=== PATIENT | male | born 1955 | race Caucasian/White ===

== ENCOUNTER → 2019-10-04 | Outpatient (CLI) | payer OTHER | LOC: MHCPAIN 09:20 | DX: R51 Headache (principal); M25.511 Pain in right shoulder; M25.512 Pain in left shoulder; M47.812 Spondylosis without myelopathy or radiculopathy, cervical region | CPT/HCPCS: G0463 ==

== ENCOUNTER → 2019-10-19 | Outpatient (CLI) | payer OTHER | LOC: MHCPAIN 09:54 | DX: M54.2 Cervicalgia (principal) | CPT/HCPCS: J1100; Q9967 ==

== ENCOUNTER → 2019-10-31 | Outpatient (CLI) | payer OTHER | LOC: MHCPAIN 11:53 | DX: R51 Headache (principal); M47.22 Other spondylosis with radiculopathy, cervical region | CPT/HCPCS: G0463 ==

== ENCOUNTER 2020-06-04 15:04 | Inpatient (IN) | payer OTHER ==
[~2020-06-04] VITALS: Ht 193 cm; Wt 102.2 kg
[2020-06-04 16:48] VITALS: BP 133/71; PULSE 64; TEMP 64
[2020-06-04] MEDS ORDERED: ROBAXIN 50500 MG/TAB PO (18:23)
[2020-06-04] MEDS ORDERED: LOTENSIN20 MG PO (18:24)
[2020-06-04] MEDS ORDERED: HYDRODIURIL50 MG PO (18:25)
[2020-06-04] MEDS ORDERED: VICOPROFEN 7.51 TAB PO (18:26)
[2020-06-04] MEDS ORDERED: ADVIL MIGRAINE200 MG PO (18:27)
[2020-06-04] MEDS ORDERED: PEPCID AC 10MG10 MG PO (18:28)
--- NOTE | 2020-06-04 19:00 | NUR ---
RECEIVED CHANGE OF SHIFT REPORT FROM DAY SHIFT NURSE. PATIENT EATING SUPPER, IVF INFUSING WITH NO PROBLEMS AT THIS TIME.
--- NOTE | 2020-06-04 19:04 | NUR ---
Patient arrived to floor via EMS. Patient is alert and oriented, answers questions appropriately. at bedside. Patient was nauseated after arrival but did not have emesis. Administered PRN nausea and pain medicaiton per order. Patient ate dinner and tolerated it well, no c/o nausea. Patient denies further needs at this time, call light within reach.
[2020-06-04 19:14] VITALS: BP 116/48; PULSE 60; TEMP 97.2
[2020-06-04] MEDS ORDERED: MEVACOR10 MG PO (20:13)
--- NOTE | 2020-06-04 20:50 | NUR ---
DECREASED ROM/STRENGTH TO R HIP D/T HIP FX, SCHEDULED FOR SURGERY LATE TOMORROW AT THIS TIME. IVF INFUSING WITH NO PROBLEMS. DENIES CHEST PAIN/SHORTNESS OF BREATH. DENIES NUMBNESS/TINGLING AT THIS TIME, WIGGLES RIGHT TOES/FLEXES&EXTENSION TO RIGHT ANKLE ON COMMAND. SEE eMAR FOR PAIN MEDS GIVEN.
[2020-06-04 23:47] VITALS: BP 139/58; PULSE 75; TEMP 97.8
[2020-06-05] VITALS (11 sets, daily range): BP systolic 102–133; BP diastolic 50–88; PULSE 65–86; TEMP 97.3–98.1
[2020-06-05 00:20] LABS: MUCOUS Present /lpf; PH 6 (5-8); SQUAMOUS EPITHELIAL 0-2 /hpf; URINE APPEARANCE Clear; URINE BACTERIA None Seen /hpf; URINE BILIRUBIN Negative (NEGATIVE); URINE BLOOD Negative (NEGATIVE); URINE COLOR Yellow; URINE GLUCOSE Negative (NEGATIVE); URINE KETONE Trace (NEGATIVE); URINE LEUKOCYTE ESTERASE Negative (NEGATIVE); URINE NITRATE Negative (NEGATIVE); URINE PROTEIN(semi-quant) Negative (NEGATIVE); URINE RBC 0-2 /hpf; URINE UROBILINOGEN Negative (NEGATIVE)
[2020-06-05 00:23] LABS: COLLECTION METHOD CLEAN CATCH
--- NOTE | 2020-06-05 07:29 | NUR ---
CHANGE OF SHIFT REPORT GIVEN TO DAY SHIFT NURSEALLYSON. REQUESTED AND GIVEN PAIN MEDS, SEE eMAR FOR MEDS GIVEN.
[2020-06-05 08:28] LABS: BASO % 0.3 % (0.0-2.0); EOS # 0.1 (0.0-0.7); EOS % 0.5 % (0-4.0); GRAN # 9.1 (1.4-6.5); GRAN % 78.4 % (42.2-75.2); HEMATOCRIT 37.8 % (42.0-52.0); HEMOGLOBIN 12.6 g/dl (13.5-18.0); LYMPH # 1.3 (1.2-3.4); LYMPH % 10.9 % (20.0-51.0); MEAN CELL VOLUME 95 fl (80.0-100.0); MEAN CORPUSCULAR HEMOGLOBIN 32 pg (27.0-31.0); MEAN CORPUSCULAR HGB CONC 33 g/dl (33.0-37.0); MEAN PLATELET VOLUME 11.1 fl (7.4-10.4); MONO # 1.1 (0.1-0.6); MONO % 9.4 % (1.7-9.3); PLATELET COUNT 279 K/mm3 (130-400); RED BLOOD COUNT 3.99 M/mm3 (4.20-5.60); REDCELL DISTRIBUTION WIDTH-CV 12.8 % (11.5-14.5)
[2020-06-05 08:29] LABS: CALCIUM 8.8 mg/dL (8.4-10.2); CREATININE, serum 0.9 (0.66-1.25); POTASSIUM 3.6 mmol/L (3.4-5.0)
--- NOTE | 2020-06-05 09:36 | NUR ---
CRISTIAN met with the patient to discuss discharge plan. The patient lives in [place] with his , Rosana (ph#[phone]). He reports independence with ADLs and does not have any DME. The patient's PCP is Dr. Leon Onofre and he receives his medications at [facility]. He reports no difficulties obtaining his meds. The patient does not have a DPOA-HC completed, but he was interested in obtaining a form for DPOA-HC. CRISTIAN provided. The patient has a right hip fracture. CRISTIAN discussed the possibility of needing post-acute rehab upon discharge. The patient states that he is hopeful to be able to return home upon discharge. He would like to see how he does with PT/OT after his surgery today. CRISTIAN then contacted the patient's , Rosana, and explained CRISTIAN's role. Rosana is in agreement to see how the patient does with PT/OT after surgery to determine care needed. SW to continue to follow.
--- NOTE | 2020-06-05 09:37 | NUR ---
Initial visit; Patient appeared to be in pain when he thanked [employer] for looking in on him. [employer] offered God's blessings.
--- NOTE | 2020-06-05 11:34 | NUR ---
Patient reporting pain to right lower extremity being 5/10 throbbing pain and given prn morphine. He had one episode of vomiting this morning following his dose of morphine. Given prn zofran and has no further episodes at this time. Will continue to monitor.
--- NOTE | 2020-06-05 13:20 | NUR ---
Patient resting in bed with by his side.
--- NOTE | 2020-06-05 13:38 | NUR ---
The patient completed a DPOA-HC and designated his , Rosana. CRISTIAN and the patient's RN, Rubi, witnessed the patient's signature. The patient was provided with the original and some copies. CRISTIAN placed a copy in the patient's chart.
--- NOTE | 2020-06-05 17:24 | NUR ---
Patient went to surgery at approximatly 4:10 or 4:15 pm. SCD's were taken with patient along with his consent for surgery and his chart. Patient's underwear had to be cut off since patient couldn't move due to fracture. Patient was cleaned and new gown placed on prior to surgery. was here earlier to visit patient, and is now at home. She will be contacted by post op nurse once patient is out of surgery. Awaiting patients return from surgery.
--- NOTE | 2020-06-05 20:05 | NUR ---
PATIENT ARRIVED FROM PACU TO ROOM 343. DENIES URGE TO VOID.
--- NOTE | 2020-06-05 20:45 | NUR ---
DECREASED ROM/STRENGTH TO RLE DUE R HIP SURGERY. ICE TO RIGHT HIP, PATIENT DENIES PAIN TO RLE/HIP AREA. WIGGLES TOES OF BOTH FEET AND FLEX/EXTENDS [place] ANKLES ON COMMAND. DENIES CHEST PAIN/SHORTNESS OF BREATH. DENIES NUMBNESS/TINGLING TO EXTREMITIES. IVF INFUSING TO RIGHT HAND WITH NO PROBLEMS. ON ROOM AIR. DENIES URGE TO VOID AT THIS TIME. TEDS AND SCD TO BLE AND PATIENT TOLERATES BOTH W/NO COMPLAINTS.
[2020-06-06] VITALS (9 sets, daily range): BP systolic 107–136; BP diastolic 50–72; PULSE 70–87; TEMP 97.4–98.3
--- NOTE | 2020-06-06 00:26 | NUR ---
REPORTS TENDERNESS TO POSTERIOR RIGHT UPPER ARM WITH TOUCH AND SOME MOVEMENT. DENIES NUMBNESS/TINGLING TO EXTREMITIES, DENIES CHEST PAIN/SHORTNESS OF BREATH. DENIES OFFERS OF PAIN MEDS AT THIS TIME FOR BOTH AREAS OF DISCOMFORT AT THIS TIME.
--- NOTE | 2020-06-06 02:30 | NUR ---
CALLED [facility] [employer] WITH DR MARSHALL, INFORMED OF BLADDER SCAN AMOUNT, PATIENT W/NO URGE TO VOID. ORDER GIVEN FOR ONE TIME ST CATH.
--- NOTE | 2020-06-06 06:23 | NUR ---
REQUESTED HOT COFFEE INSTEAD OF TAKING HOT WATER FOR BOWEL REGIMEN.
--- NOTE | 2020-06-06 06:24 | NUR ---
IVF STOPPED, SALINE LOCKED IV SITE, PATIENT PASSING FLATUS, DENIES NAUSEA.
[2020-06-06 06:57] LABS: HEMATOCRIT 36.2 % (42.0-52.0)
--- NOTE | 2020-06-06 07:24 | NUR ---
CHANGE OF SHIFT REPORT GIVEN TO DAY SHIFT NURSEADRIENNE. PATIENT UP IN CHAIR DURING REPORT.
--- NOTE | 2020-06-06 09:28 | NUR ---
PATIENT SITTING UP IN RECLINER AT BEDSIDE SHIFT REPORT. DENIED PAIN AT THE TIME, LATER REPORTED A 2/10 PAIN. PRN RAE 10 MG AND 650 OF TYLENOL GIVEN BEFORE PYSHICAL THERAPY. PATIENT TOLERATED BREAKFAST WELL AND WOULD LIKE TO ADVANCE TO A REGULAR DIET FOR LUNCH.
--- NOTE | 2020-06-06 10:22 | NUR ---
PT is recommending home health vs outpatient PT for the patient. SW met with the patient to review d/c plan and to discuss their recommendation. The patient states that he would like to return home with his . He states that he has two dogs at home and would prefer outpatient therapy at [facility]. PT is also recommending a FWW. The patient states that he does not have one and would be interested in getting a FWW from [facility]. SW contacted and faxed the FWW order to Tad at [facility]. Awaiting delivery of FWW. SW to contact and schedule an outpatient PT appointment at [facility].
--- NOTE | 2020-06-06 19:32 | NUR ---
PATIENT RECEIEVED 3 PRN DOESES OF RAE 10 MG AND TYLENOL 650 MG. PATIENT UTILIZED ICE THERAPY AND WAS ABLE TO WALK 100 FEET WITH THERAPY AND TO THE BATHROOM THIS EVENING. PT C/O MORE PAIN THE DAY HAS PROGRESSED WELL MORE SWELLING IN THE RLE.
--- NOTE | 2020-06-06 20:56 | NUR ---
PT TAKES HS MEDS INCLUDING DOSE OF ROBAXIN 500MG PO FOR MUSCLE SPASMS. IS ALERT AND ORIENTED X4. HAS SL TO RIGHT HAND WITHOUT REDNESS OR SWELLING. HAS DRSG X3 TO RIGHT LEG. CURRENTLY HAS ICE TO RIGHT KNEE D/T SWELLING AFTER AMBULATING.
--- NOTE | 2020-06-06 22:37 | NUR ---
MEDICATED WITH OXCODONE 10MG PO WITH TYLENOL 650MG PO AT THIS TIME FOR RIGHT LEG PAIN 03/25.
[2020-06-07 00:40] VITALS: BP 129/69; PULSE 86; TEMP 98.5
--- NOTE | 2020-06-07 02:37 | NUR ---
MEDICATED WITH OXYCODONE 10MG PO AND TYLENOL 650MG PO FOR RT LEG PAIN 03/25.
[2020-06-07 03:45] VITALS: BP 134/69; PULSE 88; TEMP 97.6
--- NOTE | 2020-06-07 06:36 | NUR ---
MEDICATED WITH OXYCODONE 10MG PO AND TYLENOL 650MG PO FOR PAIN TO RIGHT LEG.
[2020-06-07 06:41] LABS: HEMOGLOBIN 10.3 g/dl (13.5-18.0)
[2020-06-07 06:42] LABS: HEMATOCRIT 30.5 % (42.0-52.0)
[2020-06-07 07:00] LABS: CALCIUM 8.8 mg/dL (8.4-10.2); CREATININE, serum 1.34 (0.66-1.25); POTASSIUM 3.6 mmol/L (3.4-5.0)
[2020-06-07] MEDS ORDERED: ASPIRIN 32325 MG/TA1 PO (07:33)
[2020-06-07] MEDS ORDERED: VITAMIN C500 MG PO (07:33)
[2020-06-07] MEDS ORDERED: OSCAL 500 TAB500 MG PO (07:33)
[2020-06-07] MEDS ORDERED: DUO-KAPS1 CAP PO (07:34)
[2020-06-07 07:51] VITALS: BP 143/61; PULSE 88; TEMP 97.4
--- NOTE | 2020-06-07 08:45 | NUR ---
Sitting up in bed with eyes open watching TV. Rates pain to right hip 3/10, says the rodriguez medication has helped. Had a headache this morning as well. Has ice to right knee. Dressings to right hip/thigh/knee all CDI. Patient denies any further concerns or needs at this time.
--- NOTE | 2020-06-07 09:28 | NUR ---
CRISTIAN contacted Patricia at [facility] and scheduled the patient and outpatient PT appointment on Wednesday, 06/10, at 1015. Patricia states that they will schedule an OT appointment with the patient at his appointment on Wednesday. CRISTIAN notified the community health nursing director of the appointment. CRISTIAN to inform the patient. CRISTIAN will need to fax the patient's d/c orders to [facility] at [phone].
[2020-06-07 12:12] VITALS: BP 142/70; PULSE 91; TEMP 97.6
--- NOTE | 2020-06-07 12:24 | NUR ---
Sitting up in chair watching TV. Patient having minimal pain at this time but wants to get up and walk and take a shower so would like to take medication at this time to help decrease the pain. Will administer pain medication as prescribed. Patient denies additional needs.
[2020-06-07] MEDS ORDERED: NORCO 325 MG-7.1 TAB PO ×2 (13:27)
--- NOTE | 2020-06-07 14:35 | NUR ---
The patient is to tentatively d/c tomorrow, 06/07. CRISTIAN met with the patient to review d/c plan. The patient is ready to get back home, but is nervous. He would still like to pursue outpatient therapy. CRISTIAN contacted and reviewed the d/c plan with the patient's , Rosana. Rosana is in agreement to the plan. She states that she bought a tub transfer bench and toliet riser for the patient. She had no other questions for CRISTIAN at this time. [facility]. No additional needs at this time.
--- NOTE | 2020-06-07 15:41 | NUR ---
Patient sitting up in chair with eyes open watching TV. Rates pain 1/10 at this time. New ice pack applied to right knee. Patient says that he feels the heat from the shower really helped to decrease the pain as well. Denies additional needs. Hopes to go home tomorrow.
[2020-06-07 17:29] VITALS: BP 156/57; PULSE 105; TEMP 97.8
[2020-06-07 19:32] VITALS: BP 151/61; PULSE 103; TEMP 97.8
--- NOTE | 2020-06-07 20:40 | NUR ---
PT UP IN CHAIR AT BEDSIDE, TAKES HS MEDS WITHOUT PROBLEM INCLUDING OXYCODONE 10MG PO AND TYLENOL 650MG PO FOR RT LEG PAIN 10/23. WILL CALL WHEN READY FOR BED.
--- NOTE | 2020-06-07 21:23 | NUR ---
AMBULATES WITH WALKER, GAIT BELT AND ONE ASSIST TO BATHROOM, THEN TO BED. IVF INFUSING TO RIGHT HAND WITHOUT REDNESS OR SWELLING. IS ALERT AND ORIENTED X4. DRSG'S X3 TO RIGHT LEG, D/I. HAS BRUISE TO SACRUM FROM FALL.
[2020-06-07 22:43] LABS: BASO % 0.3 % (0.0-2.0); EOS # 0.1 (0.0-0.7); EOS % 1.2 % (0-4.0); GRAN # 7.1 (1.4-6.5); GRAN % 70.9 % (42.2-75.2); LYMPH # 1.6 (1.2-3.4); LYMPH % 15.5 % (20.0-51.0); MEAN CELL VOLUME 97 fl (80.0-100.0); MEAN CORPUSCULAR HEMOGLOBIN 31 pg (27.0-31.0); MEAN CORPUSCULAR HGB CONC 32 g/dl (33.0-37.0); MEAN PLATELET VOLUME 11.4 fl (7.4-10.4); MONO # 1.2 (0.1-0.6); MONO % 11.6 % (1.7-9.3); PLATELET COUNT 249 K/mm3 (130-400); REDCELL DISTRIBUTION WIDTH-CV 13.3 % (11.5-14.5)
--- NOTE | 2020-06-07 23:00 | NUR ---
PT COMPLAINING OF BURNING TO RIGHT LEG, ICE PACK PROVIDED.
[2020-06-08 01:38] VITALS: BP 142/68; PULSE 88; TEMP 97.7
[2020-06-08 04:12] VITALS: BP 158/77; PULSE 78; TEMP 98.6
--- NOTE | 2020-06-08 05:22 | NUR ---
Pt awake, reports pain to right leg 6/10. Has ice pack in place, medicated with Oxycodone 10mg po and Tylenol 650mg po at this time.
[2020-06-08 06:07] LABS: BASO % 0.5 % (0.0-2.0); EOS # 0.2 (0.0-0.7); GRAN # 6.5 (1.4-6.5); GRAN % 72.7 % (42.2-75.2); LYMPH # 1.1 (1.2-3.4); LYMPH % 12.6 % (20.0-51.0); MEAN CELL VOLUME 94 fl (80.0-100.0); MEAN CORPUSCULAR HGB CONC 33 g/dl (33.0-37.0); MEAN PLATELET VOLUME 10.7 fl (7.4-10.4); MONO % 11.6 % (1.7-9.3); PLATELET COUNT 237 K/mm3 (130-400); RED BLOOD COUNT 3.03 M/mm3 (4.20-5.60); REDCELL DISTRIBUTION WIDTH-CV 13.1 % (11.5-14.5)
[2020-06-08 06:08] LABS: HEMATOCRIT 28.5 % (42.0-52.0); HEMOGLOBIN 9.3 g/dl (13.5-18.0); MEAN CORPUSCULAR HEMOGLOBIN 31 pg (27.0-31.0)
[2020-06-08 06:18] LABS: CALCIUM 8.2 mg/dL (8.4-10.2); CREATININE, serum 0.93 (0.66-1.25); POTASSIUM 4.3 mmol/L (3.4-5.0)
[2020-06-08 08:19] VITALS: BP 148/62; PULSE 79; TEMP 98.4
--- NOTE | 2020-06-08 09:48 | NUR ---
CT CALLED AND NOTIFIED OF ORDERED CT SCAN AND THAT THE PHYSICIAN WOULD LIKE FOR IT TO BE DONE SOON POSSIBLE. PATIENT GIVEN NOW DOSE OF IV ATIVAN FOR AGITATION.
--- NOTE | 2020-06-08 09:56 | NUR ---
PATIENT TAKEN TO CT VIA BED. WILL WAIT FOR PATIENT RETURN TO ROOM 344.
--- NOTE | 2020-06-08 09:58 | NUR ---
PATIENT SHIFT ASSESSMENT COMPLETED AT THIS TIME. RIGHT HIP INCISION X3 DRESSED WITH GAUZE & TEGADERM AND ARE CD&I. POSTIVE PEDAL PULSES EQUAL BILATERALLY. CAP REFILL <3 SECONDS. CMS INTACT. NIMISHA HOSE TO BLE. PATIENT COMPLAINS OF PAIN IN THE RIGHT HIP. TYLENOL AND OXYCODONE GIVEN AT THIS TIME. PATIENT SITTING UP IN THE CHAIR. RLE ELEVATED ON A PILLOW. ICE PACK TO RIGHT HIP. CALL LIGHT WITHIN REACH. PATIENT DENIES ANY OTHER NEEDS AT THIS TIME.
[2020-06-08] MEDS ORDERED: NORCO 325 MG-51 TAB PO (11:09)
[2020-06-08] MEDS ORDERED: SENNA-S 50 MG-81 TAB PO (11:10)
--- NOTE | 2020-06-08 11:40 | NUR ---
RIGHT HAND INT DISCONTINUED PER PENDING DISCHARGE. TIP INTACT. PATIENT TOLERATED WELL. PATIENT AWAITING HIS FOR DISCHARGE. PATIENT STATES THAT HIS PAIN IS DOWN TO A 2/10 AFTER TAKING PAIN MEDICATION. CALL LIGHT IN REACH. NO OTHER NEEDS AT THIS TIME.
[2020-06-08 12:37] VITALS: BP 158/66; PULSE 84; TEMP 98.2
--- NOTE | 2020-06-08 14:05 | NUR ---
DISCHARGE INSTRUCTIONS REVIEWED WITH PATIENT AND . QUESTIONS SOUGHT AND ANSWERED. PATIENT PERSONAL BELONGINGS GATHERED. PATIENT TAKEN TO PERSONAL VEHICLE VIA SURGICAL STAFF VIA WHEELCHAIR. PATIENT DISCHARGED.
--- NOTE | 2020-06-10 11:57 | NUR ---
Deputy Brand Inspector contacted [facility] and faxed over history & physical, progress notes, therapy notes, and discharge orders.
== END 2020-06-08 14:05 | disposition home or self-care (01) | DRG 481 ==
LOC: MEDICAL 15:04 → SURG 16:45
PROVIDERS: Orthopaedic Surgery; Physician Assistant; ADMIT Internal Medicine
PROC: 0QS636Z Reposition Right Upper Femur with Intramedullary Internal Fixation Device, Percutaneous Approach (ICD-10-PCS; principal; 2020-06-05 16:30)
DX: S72.141A Displaced intertrochanteric fracture of right femur, initial encounter for closed fracture (principal); E87.1 Hypo-osmolality and hyponatremia; E87.3 Alkalosis; N17.9 Acute kidney failure, unspecified; I10 Essential (primary) hypertension; E78.5 Hyperlipidemia, unspecified; G89.29 Other chronic pain; M54.2 Cervicalgia; W11.XXXA Fall on and from ladder, initial encounter
CPT/HCPCS: 99223-AI; 99232-AI; 99233-AI; A9284; C1713; J0690; J1100; J2250; J2270; J2405; J2704; J3010; J7030; J7120; J7121